=== PATIENT | female | born 1990 | race Hispanic/Latino ===

== ENCOUNTER → 2021-05-24 | Outpatient (CLI) | payer OTHER ==
[~2021-05-24] MED LIST: BICITRA 30ML SOLN UDC PO ONE; CARBOPROST TROMETHAMINE 250 MCG/ML AMP IM PRN; KETOROLAC 60MG 2ML VIAL As Ordered ONE; LACTATED RINGER'S 1000 ML IV STA; LR 1,000 ML IV SCH; METHYLERGONOVINE MALEATE 0.2 MG/ML VIAL (J2210) IM PRN; MORPHINE PRES-FREE INJ 10 MG/10 ML VIAL As Ordered ONE; ONDANSETRON 4MG/2ML VIAL As Ordered ONE; OXYTOCIN DRIP 30 UNITS in IV 1 EA IV PRN; OXYTOCIN INJ 10 UNITS/ML VIAL (J2590) As Ordered ONE; PRENTAB9 PO; TRANEXAMIC ACID INJection 1,000 MG in NS 100 ML IV PRN; ceFAZolin SOD 2 GM in IV 1 EA IV ONE; dexameTHASONE 4 MG/ML 1ML VIAL (J1100 PER 1MG) As Ordered ONE; ePHEDrine SULFATE 25 MG/5 ML(5MG/ML) SYRINGE As Ordered ONE
== END ==
LOC: M RAD 11:24
PROVIDERS: ATTEND Advanced Practice Midwife
DX: O40.3XX0 Polyhydramnios, third trimester, not applicable or unspecified (principal)